=== PATIENT | female | born 1965 | race African-American/Black ===

== ENCOUNTER 2017-11-10 08:35 | Emergency (ER) | payer OTHER ==
[~2017-11-10] VITALS: Ht 162.6 cm; Wt 72.6 kg
[2017-11-10 08:35] VITALS: BP_SYST 146
--- NOTE | 2017-11-10 08:35 | NUR ---
BROUGHT BACK TO BED #5 AND TRIAGED. WILL ASSUME CARE.
--- NOTE | 2017-11-10 08:40 | NUR ---
PT STATES THAT SHE IS VISITING HERE FROM [facility] 3 DAYS WITH RIGHT LOWER ABD PAIN AND RIGHT BACK/FLANK PAIN, PT STATES +N/V. PT STATES THAT SHE IS UNABLE TO TAKE HER MEDICATION AT THIS TIME.
[2017-11-10] MEDS ORDERED: PIPERACILLIN/TAZO 3.38 GM in NS 50 ML IV ONE (09:15)
[2017-11-10] MEDS ORDERED: HYDROmorphone 2 MG/ML VIAL IVP ONE (09:15)
--- NOTE | 2017-11-10 09:31 | NUR ---
PT STATES SHE IS A "HARD STICK", ATTEMPTED BY 2 STAFF AND UNABLE TO GET IV STARTED. INFORMED DR SMITH AND WILL CHANGE IV TO IM. PT ASSISTED UP TO RESTROOM FOR UA COLLECTION
[2017-11-10 09:40] LABS: BASOPHILS % (AUTO) 0.7 % (0.0-2.0); EOSINOPHILS # (AUTO) 0.1 K/uL (0.0-0.4); EOSINOPHILS % (AUTO) 2.2 % (0.0-4.0); HEMATOCRIT 39.3 % (36-48); HEMOGLOBIN 12.6 g/dL (12.0-16.0); LYMPHOCYTES # (AUTO) 1.6 K/uL (1.0-5.5); LYMPHOCYTES % (AUTO) 31.6 % (20.5-51.5); MEAN CORPUSCULAR HEMOGLOBIN 26 pg (27-31); MEAN CORPUSCULAR HGB CONC 32 % (32-36); MEAN CORPUSCULAR VOLUME 82 fL (79.0-98.0); MONOCYTES # (AUTO) 0.3 K/uL (0.0-1.0); MONOCYTES % (AUTO) 6.9 % (1.7-9.3); NEUTROPHILS # (AUTO) 2.9 K/uL (1.8-7.7); NEUTROPHILS % (AUTO) 58.6 % (40.0-70.0); PLATELET COUNT (AUTO) 232 K/uL (130-430); RED BLOOD CELL COUNT(AUTO) 4.78 MIL/uL (4.2-6.2); RED CELL DISTRIBUTION WIDTH 13.9 % (9.0-15.0); WHITE BLOOD COUNT (AUTO) 4.9 K/uL (4.8-10.8)
--- NOTE | 2017-11-10 09:44 | NUR ---
ZOSYN WAS D/C VERBALLY BY DR SMITH AND ACCIDENTALLY SAVED IN EMR PRIOR TO ADMINISTERING.
[2017-11-10 09:50] LABS: BILIRUBIN,URINE NEGATIVE (NEGATIVE); BLOOD, URINE NEGATIVE (NEGATIVE); CLARITY/URINE SL HAZY (CLEAR); COLOR,URINE YELLOW (YELLOW); GLUCOSE,URINE NEGATIVE (NEGATIVE); KETONES,URINE NEGATIVE (NEGATIVE); LEUKOCYTE ESTERASE ,URINE NEGATIVE (NEGATIVE); NITRITE, URINE NEGATIVE (NEGATIVE); PROTEIN URINE NEGATIVE (NEGATIVE); UROBILINOGEN,URINE 0.2 (0.2-1.0)
[2017-11-10 09:55] LABS: CALCIUM 9.4 mg/dL (8.4-11.0); CREATININE 0.99 mg/dL (0.55-1.30); POTASSIUM 3.9 mmol/L (3.5-5.1)
[2017-11-10 10:13] LABS: ALBUMIN 3.7 g/dL (3.4-4.8); TOTAL BILIRUBIN 0.4 mg/dL (0.0-1.0)
--- NOTE | 2017-11-10 10:20 | NUR ---
NO CHANGES, RESTING IN ROOM
--- NOTE | 2017-11-10 11:00 | NUR ---
RESTING QUIETLY, ON PHONE AND TEXTING
[2017-11-10] MEDS ORDERED: MAGNESIUM CITRATE 300 ML ORAL SOLUTION PO ONE (11:15)
[2017-11-10] MEDS ORDERED: HYDROmorphone 2 MG/ML VIAL IM ONE (11:15)
--- NOTE | 2017-11-10 12:09 | NUR ---
PT STATES THAT SHE IS CALLING HER RIDE.
--- NOTE | 2017-11-10 12:38 | NUR ---
Patient given written and verbal discharge instructions and verbalizes understanding. ER MD discussed with patient the results and treatment provided. Patient in stable condition. ID arm band removed. Rx of NORCO, PHENERGAN given. Patient educated on pain management and to follow up with PMD. Pain Scale 0/10. Opportunity for questions provided and answered. Medication side effect fact sheet provided. PT REFUSED WHEELCHAIR, WALKED OUT TO [employer] CAR
[2017-11-10 12:39] VITALS: BP_SYST 137
== END 2017-11-10 12:39 | disposition home or self-care (01) ==
LOC: SED 08:35
DX: K59.00 Constipation, unspecified (principal); F11.20 Opioid dependence, uncomplicated; K21.9 Gastro-esophageal reflux disease without esophagitis; I10 Essential (primary) hypertension; Z90.49 Acquired absence of other specified parts of digestive tract; Z90.89 Acquired absence of other organs; Z90.710 Acquired absence of both cervix and uterus; Z79.899 Other long term (current) drug therapy
CPT/HCPCS: 36415; 71045; 74176; 80053; 81003; 83605; 83690; 85025; 85610; 87040; 93005; 96372; 99285; J1170

== ENCOUNTER 2017-11-18 06:17 | Inpatient (IN) | payer OTHER ==
[~2017-11-18] VITALS: Ht 167.6 cm; Wt 63.0 kg
[2017-11-18 06:28] VITALS: BP_SYST 143
--- NOTE | 2017-11-18 06:28 | NUR ---
Patient to ER bed 8 to gown for evaluation. Side rails up. Report given to KE YAO.
--- NOTE | 2017-11-18 06:30 | NUR ---
Patient AAO x 4 sitting in bed c/o mid abd pain radiating to back 10/10, + nausea/vomiting/diarrhea with c/o "blood in stool". Patient denies shortness of breath, able to speak in full sentences, vital signs stable. No acute distress noted. Patient currently afebrile. Will continue to monitor.
--- NOTE | 2017-11-18 06:35 | NUR ---
ER at bedside examining patient.
--- NOTE | 2017-11-18 07:00 | NUR ---
Report given to dayshift. All care endorsed.
--- NOTE | 2017-11-18 07:25 | NUR ---
Assumed care, unable to establish access. Dr. patel.
[2017-11-18] MEDS ORDERED: METOCLOPRAMIDE HCL 10 MG/2 ML VIAL IVP ONE (07:30)
[2017-11-18] MEDS ORDERED: DIPHENHYDRAMINE INJ 50 MG/ML VIAL IVP ONE (07:30)
[2017-11-18 07:45] LABS: BASOPHILS % (AUTO) 0.4 % (0.0-2.0); EOSINOPHILS # (AUTO) 0.1 K/uL (0.0-0.4); EOSINOPHILS % (AUTO) 1.9 % (0.0-4.0); HEMATOCRIT 40.6 % (36-48); HEMOGLOBIN 13.1 g/dL (12.0-16.0); LYMPHOCYTES # (AUTO) 1.8 K/uL (1.0-5.5); LYMPHOCYTES % (AUTO) 33.8 % (20.5-51.5); MEAN CORPUSCULAR HEMOGLOBIN 27 pg (27-31); MEAN CORPUSCULAR HGB CONC 32 % (32-36); MEAN CORPUSCULAR VOLUME 82 fL (79.0-98.0); MONOCYTES # (AUTO) 0.4 K/uL (0.0-1.0); MONOCYTES % (AUTO) 6.7 % (1.7-9.3); NEUTROPHILS # (AUTO) 2.9 K/uL (1.8-7.7); NEUTROPHILS % (AUTO) 57.2 % (40.0-70.0); PLATELET COUNT (AUTO) 247 K/uL (130-430); RED BLOOD CELL COUNT(AUTO) 4.94 MIL/uL (4.2-6.2); RED CELL DISTRIBUTION WIDTH 13.7 % (9.0-15.0); WHITE BLOOD COUNT (AUTO) 5.2 K/uL (4.8-10.8)
[2017-11-18 07:57] LABS: CALCIUM 9.1 mg/dL (8.4-11.0); CREATININE 1.05 mg/dL (0.55-1.30); POTASSIUM 3.5 mmol/L (3.5-5.1)
[2017-11-18 07:59] LABS: PROTHROMBIN TIME 10.3 SECS (9.5-12.5)
--- NOTE | 2017-11-18 08:00 | NUR ---
ER at bedside examining patient.
[2017-11-18 08:02] LABS: ALBUMIN 3.7 g/dL (3.4-4.8); TOTAL BILIRUBIN 0.2 mg/dL (0.0-1.0)
[2017-11-18] MEDS ORDERED: KETAMINE 30 MG/3 ML SYRINGE IVP ONE (08:30)
--- NOTE | 2017-11-18 08:30 | NUR ---
Access established by Dr. Osborn . RICK spangler
--- NOTE | 2017-11-18 09:10 | NUR ---
Pt tolerated medciation. Pt reports pain resolving
[2017-11-18] MEDS ORDERED: DIPHENHYDRAMINE INJ 50 MG/ML VIAL ONE (09:43)
[2017-11-18] MEDS ORDERED: METOCLOPRAMIDE HCL 10 MG/2 ML VIAL ONE (09:44)
[2017-11-18] MEDS ORDERED: PROMETHAZINE HCL 25 MG/ML AMP IVP ONE ×2 (09:45→12:15)
[2017-11-18] MEDS ORDERED: LISI40TA4 PO (10:30)
[2017-11-18] MEDS ORDERED: HYDROmorphone 1 MG INJ. 1 MG/ML AMPUL IVP ONE ×2 (10:45→12:15)
[2017-11-18] MEDS ORDERED: PHE25 PO (10:47)
[2017-11-18] MEDS ORDERED: HYDR2TAB4 PO (10:47)
[2017-11-18] MEDS ORDERED: NOR10 PO (10:47)
[2017-11-18] MEDS ORDERED: PRO40 PO (10:47)
[2017-11-18] MEDS ORDERED: SYN50 PO (10:47)
--- NOTE | 2017-11-18 10:48 | NUR ---
Medication reconciliation completed based upon list provided by patient.
--- NOTE | 2017-11-18 11:15 | NUR ---
Attempting to reestablish IV access, EJ not patent.
[2017-11-18] MEDS ORDERED: LORazepam 2 MG/ML VIAL IVP PRN (11:30)
[2017-11-18] MEDS ORDERED: HYDROmorphone 1 MG INJ. 1 MG/ML AMPUL IVP PRN (11:30)
--- NOTE | 2017-11-18 12:00 | NUR ---
IV established via US by Alton Skelton RN.
--- NOTE | 2017-11-18 12:20 | NUR ---
Pt medicated tolerated well.
--- NOTE | 2017-11-18 12:25 | NUR ---
Patient transported to radiology via gurney, accompanied by rad staff.
--- NOTE | 2017-11-18 12:40 | NUR ---
Returned from radiology, back to [facility].
--- NOTE | 2017-11-18 12:49 | NUR ---
Patient will be admitted to [facility] . Admitted to Medsurg unit. Belongings list completed. Summary report printed. Report will be given at bedside.
[2017-11-18 12:51] VITALS: BP_SYST 142
--- NOTE | 2017-11-18 12:51 | NUR ---
Admission: Received from ER on a gurney with the diagnosis of ILEUS. Alert and oriented x4. Oriented to room.
[2017-11-18] MEDS: HYDROmorphone 2 MG/ML VIAL IVP PRN ×3 (13:15→21:13)
[2017-11-18] MEDS: 0.45% NACL 1,000 ML IV SCH ×3 (13:16→22:55)
--- NOTE | 2017-11-18 13:30 | NUR ---
Opening Note received report from admitting nurse, pt resting in bed, A&Ox4, respirations even and unlabored on room air, pain controlled at this time, IV site clean, dry, intact, and infusing well, vital signs stable, pt educated on use of call light and asked to call for assistance, pt verbalized understanding, call light in reach, bed in low position, bed alarm on, room close to nurses station, fall and aspiration precautions in place.
--- NOTE | 2017-11-18 14:17 | NUR ---
CONSULT GI ILEUS DR MEDRANO [phone] DR LEON PEARL HAND S/W [place] OFFICE
--- NOTE | 2017-11-18 15:00 | NUR ---
RN Rounds pt resting in bed, pt requested cool pack for non-pharmacological pain relief, pt provided with cool pack, pt tolerating well, no additional needs at this time, fall and aspiration precautions in place.
[2017-11-18 16:00] VITALS: BP_SYST 117
[2017-11-18] MEDS: PROMETHAZINE HCL 25 MG/ML AMP IM PRN ×2 (17:22→21:07)
--- NOTE | 2017-11-18 17:33 | NUR ---
Pain Management/Nausea/Medication pt complaint of pain /10 to abdomen, pt complaint of nausea, pt educated on use and side effects of PRN pain and nausea medication, pt verbalized understanding, tolerated medication administration well, no additional needs at this time, fall and aspiration precautions in place.
--- NOTE | 2017-11-18 19:20 | NUR ---
OPENING NOTES Late entry due to patient care. Bedside report received from day shift nurse. Patient received lying in bed, AOx4, complaining of 4/10 abdominal pain. Breathing is even and unlabored. IVF infusing well, IV site shows no signs of infiltration or infection. Call light with patient, instructed to call for any assistance, patient verbalized understanding. Bed alarm is on. Bed is locked and at lowest position. Will continue to monitor.
--- NOTE | 2017-11-18 19:20 | NUR ---
Closing Note pt resting in bed, A&Ox4, respirations even and unlabored on room air, pain controlled at this time, pt states that she had small amount of blood in stool when wiping, endorsed to operations supervisor 2nd shift RN to follow up with MD, IV site clean, dry, intact, and infusing well, pt educated on use of call light and asked to call for assistance, pt verbalized understanding, call light in reach, bed in low position, bed alarm on, room close to nurses station, fall and aspiration precautions in place, care endorsed to operations supervisor 2nd shift RN.
[2017-11-18 20:00] VITALS: BP_SYST 110
--- NOTE | 2017-11-18 21:00 | NUR ---
ROUNDS/COMPLAIN OF PAIN AND NAUSEA Patient in bed, resting at this time. Patient complains of feeling nauseated and 8/10 abdominal pain. PRN medications will be administered. Chest rise and fall even bilaterally. IVF infusing well. IV site shows no signs of infection or infiltration. Call light with patient. Bed alarm is on. Will continue to monitor.
--- NOTE | 2017-11-18 23:00 | NUR ---
ROUNDS/BEDSIDE COMMODE Patient in bed resting at this time. Patient requested assistance to the bathroom, RN assisted, but patient was too weak to make it. Patient refused bed juares, RN brought a bedside commode instead. No s/s of acute distress. Breathing is even and unlabored. IVF infusing well. Call light with patient. All needs met at this time. Bed alarm on. Will continue to monitor.
[2017-11-19] VITALS: BP_SYST 110
--- NOTE | 2017-11-19 01:00 | NUR ---
ROUNDS/PAIN AND NAUSEA Patient sitting up in bed at this time. Patient complains of 7/10 abdominal pain and feeling nauseated. Dilaudid and Phenergan to be administered per PRN orders. Breathing is even and unlabored. IVF infusing well. Call light with patient. Bed alarm on. Will continue to monitor and reassess.
[2017-11-19] MEDS: PROMETHAZINE HCL 25 MG/ML AMP IM PRN ×3 (01:06→08:38)
[2017-11-19] MEDS: HYDROmorphone 2 MG/ML VIAL IVP PRN ×6 (01:06→20:52)
--- NOTE | 2017-11-19 03:00 | NUR ---
ROUNDS Patient in bed sleeping at this time. No s/s of acute distress noted. Chest rise and fall even bilaterally. IVF infusing well. Call light with patient. Bed alarm is on. Bed locked and at lowest position. Will continue to monitor.
--- NOTE | 2017-11-19 04:47 | NUR ---
[facility] Nguyen Justin dialed [phone], s/w Elizabeth.
--- NOTE | 2017-11-19 04:56 | NUR ---
DR. CARRERA CALLED BACK Dr. Carrera made aware that patient has yet to void throughout shift, bladder is distended and firm. MD ordered to insert vega and keep in place. Will carry out order. Addendum: 11/19/17 at 0603 by Herman Mireles RN ADDITIONAL MD was also made aware that bladder scan was performed and 764ml was detected.
--- NOTE | 2017-11-19 06:46 | NUR ---
CLOSING NOTES Patient in bed sleeping at this time. No s/s of acute distress noted. Breathing is even and unlabored. IVF infusing well, IV site shows no signs of infection or infiltration. Jules attached, secured and draining by gravity. Patient had 600 ml of clear, dark, orange urine output upon initial insertion of Jules. All of patient's needs met throughout shift. Fall and safety precautions maintained throughout shift.
[2017-11-19 07:05] LABS: BASOPHILS % (AUTO) 0.5 % (0.0-2.0); EOSINOPHILS # (AUTO) 0.1 K/uL (0.0-0.4); EOSINOPHILS % (AUTO) 1.1 % (0.0-4.0); HEMATOCRIT 36.5 % (36-48); LYMPHOCYTES # (AUTO) 1.4 K/uL (1.0-5.5); LYMPHOCYTES % (AUTO) 21.1 % (20.5-51.5); MEAN CORPUSCULAR HEMOGLOBIN 27 pg (27-31); MEAN CORPUSCULAR HGB CONC 33 % (32-36); MEAN CORPUSCULAR VOLUME 83 fL (79.0-98.0); MONOCYTES # (AUTO) 0.5 K/uL (0.0-1.0); MONOCYTES % (AUTO) 7.3 % (1.7-9.3); NEUTROPHILS # (AUTO) 4.6 K/uL (1.8-7.7); PLATELET COUNT (AUTO) 208 K/uL (130-430); RED CELL DISTRIBUTION WIDTH 13.8 % (9.0-15.0)
[2017-11-19 07:12] LABS: WHITE BLOOD COUNT (AUTO) 6.6 K/uL (4.8-10.8)
[2017-11-19 07:19] LABS: CALCIUM 8.7 mg/dL (8.4-11.0); CREATININE 0.98 mg/dL (0.55-1.30); POTASSIUM 3.8 mmol/L (3.5-5.1)
[2017-11-19 07:36] LABS: TOTAL BILIRUBIN 0.5 mg/dL (0.0-1.0)
[2017-11-19 07:37] LABS: ALBUMIN 3.3 g/dL (3.4-4.8)
[2017-11-19 08:00] VITALS: BP_SYST 132
--- NOTE | 2017-11-19 08:00 | NUR ---
Note Pt sitting up in bed with IVF's infusing through left AC IV site. Pt is NPO at this time for severe N/V. No SOB/resp distress noted at this time. Pt next to nurses' station for close observation. Pt has Jules catheter which is intact and draining well. No needs noted. Call light within reach.
[2017-11-19] MEDS ORDERED: PROMETHAZINE HCL 25 MG/ML AMP IVP PRN (10:00)
[2017-11-19] MEDS ORDERED: GASTROGRAFIN 120 ML ONE (11:04)
[2017-11-19] MEDS: 0.45% NACL 1,000 ML IV SCH ×2 (11:27→20:57)
--- NOTE | 2017-11-19 12:00 | NUR ---
Note Pt went to Radiology for small series at 0950am and returned at 1125am. Pt was not able to keep contrast down and had emesis. Pt back in room and resting in bed. Pt given her pain and nausea IVP medications q4' as requested and scheduled. Pt resting in bed. Pt still NPO. Call light within reach.
[2017-11-19 12:24] VITALS: BP_SYST 140
[2017-11-19] MEDS: PROMETHAZINE HCL 25 MG/ML AMP IVP PRN ×3 (12:49→20:52)
--- NOTE | 2017-11-19 15:53 | NUR ---
DC Planning: Updated pt's status to JAY Flores at [facility], case reference #[id number]. The pt c/o nausea/vomiting and pt. was unable to urinate since this am. DCP per GI consult: check sm. bowel series to evaluate for bowel obstruction, pain control and antiemetics for nausea and vomiting, and evaluation for possible EGD/Colonoscopy. JAY faxed FS,HP, consultation notes, labs and radiology notes to fax# [phone], tel# [phone], per her request. TVRN/JAY
--- NOTE | 2017-11-19 16:00 | NUR ---
Note Pt to be seen by Dr Nguyen who is on the floor at this time and orders were written. No needs noted. Call light within reach. Pt is doing her bible studies and on her cellphone. Call light within reach.
[2017-11-19 16:05] VITALS: BP_SYST 138
--- NOTE | 2017-11-19 17:40 | NUR ---
CONSULT PAIN MANAGEMENT ORDER BY Grupo WILKINS FOR Koki MARTINEZ REGARDING INTRACTIBLE PAIN S/W SYMONE
--- NOTE | 2017-11-19 18:00 | NUR ---
Note Pt resting in bed with IVF's infusing well through left forearm IV site all shift. Jules catheter intact and draining well all shift. Pt checked on q1' and PRN for needs and care all shift. Pt stable at this time. No SOB/resp distress noted. Call light within reach.
--- NOTE | 2017-11-19 19:25 | NUR ---
OPENING NOTE RECEIVED PT AND REPORT FROM DAY SHIFT NURSE. PT IS LAYING AWAKE IN BED. PT ABLE TO VERBALIZE NEEDS. IV IS INTACT AND PATENT. VIVEROS IN PLACE AND DRAINING URINE VIA GRAVITY. FALL AND SAFETY PRECAUTIONS IN PLACE. BED LOCKED IN LOWEST POSITION. CALL LIGHT WITH PT. WILL CONTINUE TO MONITOR.
[2017-11-19 20:00] VITALS: BP_SYST 142
--- NOTE | 2017-11-19 20:55 | NUR ---
MEDICATION ADMINISTRATION ADMINISTERED PRN PAIN AND NAUSEA MEDICATION PER ORDERS. ADMINISTERED IVF PER ORDERS. ENCOURAGED PT TO CALL BEFORE AMBULATING. PT AGREED. WILL CONTINUE TO MONITOR.
[2017-11-19] MEDS ORDERED: LEVOFLOXACIN 250 MG/D5W 50 ML IV SCH (22:00)
[2017-11-19] MEDS ORDERED: LEVOFLOXACIN 250 MG/D5W 50 ML IV ONE (22:18)
[2017-11-19] MEDS ORDERED: metroNIDAZOLE 500 mg/NS 200 ML IV ONE (22:19)
--- NOTE | 2017-11-19 22:30 | NUR ---
IV ABX ADMINISTERED IV ABX PER ORDERS. PT RESTING IN BED. CALL LIGHT WITH PT. WILL CONTINUE TO MONITOR.
--- NOTE | 2017-11-19 23:50 | NUR ---
IV ABX ADMINISTERED IV ABX PER ORDERS. WILL CONTINUE TO MONITOR.
[2017-11-19] MEDS: metroNIDAZOLE 250 mg/NS 50 ML IV SCH (23:52)
[2017-11-20 00:28] VITALS: BP_SYST 117
[2017-11-20] MEDS: HYDROmorphone 2 MG/ML VIAL IVP PRN ×5 (01:00→19:18)
[2017-11-20] MEDS: PROMETHAZINE HCL 25 MG/ML AMP IVP PRN ×5 (01:00→19:17)
--- NOTE | 2017-11-20 01:00 | NUR ---
PRN PAIN AND NAUSEA MEDICATION ADMINISTERED PRN PAIN AND NAUSEA MEDICATION PER ORDERS. PT RESTING IN BED. BED ALARM ON. CALL LIGHT WITH PT. WILL CONTINUE TO MONITOR.
--- NOTE | 2017-11-20 02:40 | NUR ---
ROUNDING NOTE PT IS SLEEPING IN BED. NO S/S OF DISTRESS OR DISCOMFORT. CALL LIGHT WITH PT. WILL CONTINUE TO MONITOR.
--- NOTE | 2017-11-20 05:05 | NUR ---
PRN PAIN AND NAUSEA MEDICATION ADMINISTERED PRN PAIN AND NAUSEA MEDICATION PER ORDER. BED ALARM ON. PT RESTING. WILL CONTINUE TO MONITOR.
[2017-11-20] MEDS: metroNIDAZOLE 250 mg/NS 50 ML IV SCH ×2 (06:04→15:14)
--- NOTE | 2017-11-20 06:08 | NUR ---
IV ABX ADMINISTERED IV ABX. STOREPERSON AT BEDSIDE. PT TOLERATING WELL. WILL CONTINUE TO MONITOR.
--- NOTE | 2017-11-20 06:24 | NUR ---
CLOSING NOTE WILL ENDORSE CARE AND REPORT TO DAY SHIFT NURSE. PT IS SITTING UP AWAKE IN BED. ALL NEEDS MET THROUGHOUT SHIFT. NO SIGNIFICANT CHANGES TO NOTE DURING SHIFT. PT IS IN STABLE CONDITION. CALL LIGHT WITH PT. WILL CONTINUE TO MONITOR.
[2017-11-20] MEDS ORDERED: SIMETHICONE 40 MG/0.6 ML ML ONE (07:20)
[2017-11-20] MEDS ORDERED: MEPERIDINE HCL/PF 100 MG/ML AMP ONE (07:20)
--- NOTE | 2017-11-20 07:20 | NUR ---
AM rounds: Received patient sleeping. IV fluids 1/2 NS 100cc/hr infusing on the left arm gauge 20.
[2017-11-20] MEDS ORDERED: MIDAZOLAM HCL 5 MG/5 ML VIAL ONE (07:21)
--- NOTE | 2017-11-20 07:45 | NUR ---
AM rounds: Awake, oriented x4. Kept NPO for EGD today. Patient states pain is ON & OFF accompanied by nausea and vomiting. Abdomen is slightly tender. Last Bowel movement was . Today's plan of care is discussed with patient. Call light within reach.
[2017-11-20 07:52] VITALS: BP_SYST 135
--- NOTE | 2017-11-20 07:52 | NUR ---
(GI) rounds: Seen by Dr. Gonzales, EGD will be done tomorrow instead of today. Wants to request a surgical consult per Dr. Grupo Nguyen.
[2017-11-20 08:02] LABS: BASOPHILS # (AUTO) 0.1 K/uL (0.0-0.2); BASOPHILS % (AUTO) 0.9 % (0.0-2.0); EOSINOPHILS # (AUTO) 0.1 K/uL (0.0-0.4); HEMATOCRIT 38.9 % (36-48); HEMOGLOBIN 12.8 g/dL (12.0-16.0); LYMPHOCYTES # (AUTO) 1.4 K/uL (1.0-5.5); MEAN CORPUSCULAR HEMOGLOBIN 27 pg (27-31); MEAN CORPUSCULAR HGB CONC 33 % (32-36); MEAN CORPUSCULAR VOLUME 82 fL (79.0-98.0); MONOCYTES # (AUTO) 0.5 K/uL (0.0-1.0); MONOCYTES % (AUTO) 7.1 % (1.7-9.3); NEUTROPHILS # (AUTO) 4.7 K/uL (1.8-7.7); PLATELET COUNT (AUTO) 188 K/uL (130-430); RED BLOOD CELL COUNT(AUTO) 4.74 MIL/uL (4.2-6.2); RED CELL DISTRIBUTION WIDTH 13.5 % (9.0-15.0); WHITE BLOOD COUNT (AUTO) 6.8 K/uL (4.8-10.8)
[2017-11-20 08:07] LABS: HEPATITIS A AB, IgM Negative (Negative); HEPATITIS B CORE AB, IgM Negative (Negative); HEPATITIS B SURFACE AG Negative (Negative)
[2017-11-20 08:10] LABS: ALBUMIN 3.4 g/dL (3.4-4.8); CALCIUM 9.1 mg/dL (8.4-11.0); CREATININE 0.76 mg/dL (0.55-1.30); POTASSIUM 3.8 mmol/L (3.5-5.1); TOTAL BILIRUBIN 0.8 mg/dL (0.0-1.0)
--- NOTE | 2017-11-20 08:16 | NUR ---
CONSULTATION PAGED REASON FOR CONSULTATION:POSSIBLE BOWEL OBSTRUCTION WAS CONSULT CALLED?Y PERSON WHO WAS NOTIFIED:REILLY CONSULTING PHYSICIAN:MANAN BRANDT [employer] SPECIALTY:SURGEON [employer] PHONE NUMBER:[phone] ORDERING PHYSICIAN:TREV SANTOS
--- NOTE | 2017-11-20 08:31 | NUR ---
EGD: Transported to GI lab for EGD.
--- NOTE | 2017-11-20 09:24 | NUR ---
S/P EGD. Back from GI lab s/p EGD.
--- NOTE | 2017-11-20 10:02 | NUR ---
Nutrition Update Tristan Scale 18 noted. Pt admitted for ileus. Diet: clear liquid BMI: 22.4 kg/m2 RD to follow per nutrition care standards.
[2017-11-20 10:06] VITALS: BP_SYST 136
[2017-11-20] MEDS ORDERED: DIATR MEGLU/DIATRIZ SOD 30 ML SOLUTION PO ONE (10:09)
--- NOTE | 2017-11-20 10:52 | NUR ---
Diet: Patient inquired if she is still NPO. Instructed patient that there is a CT Abdomen/Pelvis ordered and Surgical consult. Verbalized understanding.
--- NOTE | 2017-11-20 11:31 | NUR ---
DISCHARGE PLANNING - INSURANCE REQUESTING INFO Received call from JAY Restrepo at [facility]), requesting to fax updated clinical info for this date. Faxed to FAX #: [phone] the ff: Progress Notes, Surgery Operative Notes, current Medication lists/lab results. Addendum: 11/20/17 at 1414 by Eli Samano RN Received vm from Halley from [facility]). Requesting return call. C/S with Halley ph: [phone]. She was requesting update of EGD. Provided her info that EGD completed today, 11/20. Post-op dx: Gastritis, Gastric Polyp, Gastroparesis. Bx is taken and sent for pathology and ARABELLA test. No discharge order. Clarified FAX # as fax has been returning as "BUSY". She confirmed Fax # as [phone] . She stated they have been receiving multiple ques of fax coming. She stated, as for now, clinical status provided to her is sufficient as update. This CM will continue to attempt to fax clinical info.
[2017-11-20 12:00] VITALS: BP_SYST 139
[2017-11-20] MEDS: 0.45% NACL 1,000 ML IV SCH ×2 (12:06→22:31)
[2017-11-20] MEDS ORDERED: IOHEXOL 100 ML IV ONE (13:47)
--- NOTE | 2017-11-20 14:20 | NUR ---
CT scan. To CT scan on a wheelchair for CT Abd/Pelvis
--- NOTE | 2017-11-20 15:00 | NUR ---
IV start: IV infiltrated while having CT scan. Started gauge 22 on the left hand. Secured with tegaderm and tape.
[2017-11-20 16:17] VITALS: BP_SYST 122
--- NOTE | 2017-11-20 18:20 | NUR ---
End of shift: Needs attended. Result of CT scan reported to Dr. Gonzales with new diet order received.
--- NOTE | 2017-11-20 19:30 | NUR ---
OPENING NOTE RECEIVED PT AND REPORT FROM DAY SHIFT NURSE. PT IS SITTING UP AWAKE IN BED. PT ABLE TO VERBALIZE NEEDS. PT DENIES ANY PAIN AT THIS TIME. IV IS INTACT AND RUNNING IVF PER ORDERS. VIVEROS CATHETER IN PLACE DRAINING YELLOW URINE. FALL AND SAFETY PRECAUTIONS IN PLACE. BED LOCKED IN LOWEST POSITION. BED ALARM ON. CALL LIGHT WITH PT. WILL CONTINUE TO MONITOR.
[2017-11-20 20:00] VITALS: BP_SYST 150
[2017-11-20 20:10] LABS: ANTI NUCLEAR AB WITH REFLEX Negative (Negative)
--- NOTE | 2017-11-20 20:10 | NUR ---
IV INFILTRATED IV REMOVED DUE TO INFILTRATION. KE VALENTIN ATTEMPTED INSERTION BUT WAS UNSUCCESSFUL. CHARGE NURSE WILL ATTEMPT.
--- NOTE | 2017-11-20 21:30 | NUR ---
IV ATTEMPT DIDA, CHARGE NURSE AND ORESTES, VEGETABLE COOK ATTEMPTED TO INSERT IV WITHOUT SUCCESS. PT TOLERATED WELL.
--- NOTE | 2017-11-20 22:30 | NUR ---
IV KE GROVER FROM ICU ATTEMPTING TO INSERT IV. PT TOLERATING WELL.
--- NOTE | 2017-11-20 23:30 | NUR ---
IV ATTEMPT KE CHAN FROM ER AT BEDSIDE ATTEMPTING IV. PT TOLERATING WELL.
--- NOTE | 2017-11-21 00:22 | NUR ---
pageJustin Ramos Dr. for orders spoke with
[2017-11-21 00:32] VITALS: BP_SYST 125
--- NOTE | 2017-11-21 00:40 | NUR ---
DEBI INFORMED DR CARRERA THAT WE ARE UNABLE TO OBTAIN IV ACCESS ON PT. DR. CARRERA ORDERS TO CHANGE ALL MEDICATIONS TO PO FORM. INFORMED THAT PT IS ON CLEAR LIQUID DIET AND HAS NOT VOMITED ON SHIFT OF YET. RECEIVED ORDER FOR PICC LINE TOMORROW. WILL FOLLOW THROUGH WITH ORDERS. Addendum: 11/21/17 at 0237 by Christiane Levy RN ALSO INFORMED DR OF SIGNIFICANT SWELLING TO LEFT HAND WHERE PREVIOUS IV WAS PLACED, DR. CARRERA STATES TO APPLY ICEPACKS.
[2017-11-21] MEDS ORDERED: HYDROmorphone 2 MG TAB PO PRN (00:45)
[2017-11-21] MEDS ORDERED: LORazepam 1 MG TABLET PO PRN (00:45)
[2017-11-21] MEDS ORDERED: PROMETHAZINE HCL 25 MG TABLET PO PRN (00:45)
--- NOTE | 2017-11-21 01:50 | NUR ---
paged Dr. Nguyen for orders spoke with Irasema
--- NOTE | 2017-11-21 02:08 | NUR ---
DEBI ORDERS INFORMED DR. CARRERA OF PT REFUSAL TO TAKE PO MEDICATIONS. DEBI AGREED TO IM FORM OF PAIN AND NAUSEA MEDICATION. STATES TO HOLD ANTIBIOTICS UNTIL PICC IS PLACED.
[2017-11-21] MEDS: HYDROmorphone 2 MG/ML VIAL IM PRN ×3 (02:27→11:26)
[2017-11-21] MEDS: PROMETHAZINE HCL 25 MG/ML AMP IM PRN ×3 (02:28→11:25)
--- NOTE | 2017-11-21 02:35 | NUR ---
PRN PAIN AND NAUSEA MEDICATION/ SWOLLEN HAND ADMINISTERED PRN PAIN AND NAUSEA MEDICATION PER ORDERS. PROVIDED PT WITH ICEPACK FOR SWOLLEN HAND AND INSTRUCTED PT TO KEEP HAND ELEVATED. WILL CONTINUE TO MONITOR.
--- NOTE | 2017-11-21 04:10 | NUR ---
ROUNDING NOTE BROUGHT PATIENT WET WASH CLOTHES PER REQUEST. WILL CONTINUE TO MONITOR.
[2017-11-21] MEDS ORDERED: COMMUNICATION ORDER XX ONE (04:15)
--- NOTE | 2017-11-21 05:09 | NUR ---
IV ABX ADMINISTERED IV ABX PER ORDER. PT SLEEPING. WILL CONTINUE TO MONITOR. Addendum: 11/21/17 at 0529 by Christiane Levy RN INCORRECT PT.
[2017-11-21] MEDS ORDERED: metroNIDAZOLE 250 MG TABLET PO SCH (06:00)
--- NOTE | 2017-11-21 06:06 | NUR ---
paged Justin Cole for orders spoke with Elizabeth.
--- NOTE | 2017-11-21 06:30 | NUR ---
DEBI/HAND SWELLING INFORMED THAT HAND REMAINS SIGNIFICANTLY SWOLLEN, AND PT REPORTS PAIN WELL NUMBNESS TO CERTAIN AREAS. RECEIVED ORDERS. WILL FOLLOW THROUGH WITH ORDERS.
--- NOTE | 2017-11-21 06:53 | NUR ---
PRN PAIN AND NAUSEA MEDICATION ADMINISTERED PRN PAIN AND NAUSEA MEDICATION PER ORDERS. CALL LIGHT WITH PT. WILL CONTINUE TO MONITOR.
--- NOTE | 2017-11-21 07:20 | NUR ---
Opening Note patient sitting up in bed, awake and alert, breathing unlabored on room air, no IV site at this time, pending PICC line placement, educated patient on use of call light for assistance, verbalized understanding, safety precautions in place, call light and bedside table left within reach, will be back to check on patient
--- NOTE | 2017-11-21 07:33 | NUR ---
CLOSING NOTE WILL ENDORSE CARE AND REPORT TO DAY SHIFT NURSE. PT IS SITTING UP AWAKE IN BED. PT IS STABLE AT THIS TIME. ALL NEEDS MET THROUGHOUT SHIFT. SWELLING TO THE LEFT HAND ENDORSED TO DAY SHIFT. CALL LIGHT IS WITH PATIENT. WILL CONTINUE TO MONITOR.
[2017-11-21 08:00] VITALS: BP_SYST 121
--- NOTE | 2017-11-21 08:28 | NUR ---
Dr. Oconnor Rounds at this time, stated there is no indication for surgery, patient verbalized understanding, will continue to monitor patient
[2017-11-21 08:30] LABS: BASOPHILS % (AUTO) 0.5 % (0.0-2.0); EOSINOPHILS # (AUTO) 0.1 K/uL (0.0-0.4); EOSINOPHILS % (AUTO) 2.1 % (0.0-4.0); HEMATOCRIT 36.9 % (36-48); HEMOGLOBIN 11.8 g/dL (12.0-16.0); LYMPHOCYTES # (AUTO) 1.6 K/uL (1.0-5.5); LYMPHOCYTES % (AUTO) 26.8 % (20.5-51.5); MEAN CORPUSCULAR HEMOGLOBIN 26 pg (27-31); MEAN CORPUSCULAR HGB CONC 32 % (32-36); MEAN CORPUSCULAR VOLUME 82 fL (79.0-98.0); MONOCYTES # (AUTO) 0.5 K/uL (0.0-1.0); MONOCYTES % (AUTO) 9.2 % (1.7-9.3); NEUTROPHILS # (AUTO) 3.7 K/uL (1.8-7.7); NEUTROPHILS % (AUTO) 61.4 % (40.0-70.0); PLATELET COUNT (AUTO) 199 K/uL (130-430); RED CELL DISTRIBUTION WIDTH 13.3 % (9.0-15.0); WHITE BLOOD COUNT (AUTO) 5.9 K/uL (4.8-10.8)
[2017-11-21 08:39] LABS: PROTHROMBIN TIME 10.6 SECS (9.5-12.5)
--- NOTE | 2017-11-21 08:50 | NUR ---
Patient Stated She Wants to be Discharged by today because [place] from [place] and she [place] a flight, educated her on PICC line placement order, verbalized understanding, stated she wants to cancel placement, will inform house sup and inform MD
[2017-11-21 08:55] LABS: ALBUMIN 3.3 g/dL (3.4-4.8); C-REACTIVE PROTEIN QUANT 1.6 mg/dL (0-0.5); CALCIUM 9.2 mg/dL (8.4-11.0); CREATININE 0.85 mg/dL (0.55-1.30); POTASSIUM 3.1 mmol/L (3.5-5.1); TOTAL BILIRUBIN 0.7 mg/dL (0.0-1.0)
--- NOTE | 2017-11-21 09:40 | NUR ---
Hand measurements left hand (pinky base to thumb base)- 28 cm left wrist- 18 cm right hand (pinky base to thumb base)- 25 cm right hand- 15 cm Patient is able to move left hand, non-pitting edema, skin feels warm, states feels tender, slight pain
[2017-11-21 09:43] LABS: ERYTHROCYTE SEDIMENTATION RATE 18 MM/HR (0-20)
[2017-11-21] MEDS ORDERED: LEVOFLOXACIN 250 MG TABLET PO SCH (10:00)
--- NOTE | 2017-11-21 10:17 | NUR ---
Dr. Christian Cruz at this time, aware patients wants to leave today, will follow through with MD orders
--- NOTE | 2017-11-21 11:21 | NUR ---
ATTENDING MD DR Maci CARRERA WAS PAGED, RE: DESIRE OF THE PT TO GO HOME, REFUSING PIC LINE INSERTION.
--- NOTE | 2017-11-21 11:25 | NUR ---
Pain/Nausea Meds administered per protocol, educated her regarding meds, verbalized understanding, administered IM, patient tolerated well, safety precautions remain in place, bedside table and call light left within reach, will continue to monitor and reassess patient
[2017-11-21 12:16] VITALS: BP_SYST 113
--- NOTE | 2017-11-21 13:21 | NUR ---
Paged Dr. Nguyen at this time to inform him about patient's potassium level and to ask about patient's hand swelling, will follow through with MD orders
--- NOTE | 2017-11-21 13:29 | NUR ---
Spoke with Dr. Nguyen informed him about patient's potassium, ordered 1 time order for potassium by mouth, also asked if he wants to evaluate patient's hand from swelling, stated she can follow up with primary care provider regarding hand, also gave order to discontinue vega catheter, will implement MD orders
[2017-11-21] MEDS ORDERED: POTASSIUM CHLORIDE 20 MEQ TAB.PRT.SR PO ONE (13:30)
--- NOTE | 2017-11-21 13:45 | NUR ---
Jules Catheter Removed patient was able to ambulate to restroom and void, no complaints of discomfort, will continue with discharge teaching for patient
[2017-11-21 13:56] VITALS: BP_SYST 113
[2017-11-24 14:28] LABS: ANTI-SMOOTH MUSCLE AB 21 Units (0-19)
== END 2017-11-21 14:25 | disposition home or self-care (01) | DRG 389 ==
LOC: SED 06:17 → SMU 10:31
PROVIDERS: ADMIT Preventive Medicine Preventive Medicine/Occupational Environmental Medicine; ATTEND Preventive Medicine Preventive Medicine/Occupational Environmental Medicine
PROC: 0DB68ZX Excision of Stomach, Via Natural or Artificial Opening Endoscopic, Diagnostic (ICD-10-PCS; 2017-11-20)
PROC: 0DB98ZX Excision of Duodenum, Via Natural or Artificial Opening Endoscopic, Diagnostic (ICD-10-PCS; principal; 2017-11-20 08:00)
DX: K56.609 Unspecified intestinal obstruction, unspecified as to partial versus complete obstruction (principal); E87.1 Hypo-osmolality and hyponatremia; K29.70 Gastritis, unspecified, without bleeding; K56.7 Ileus, unspecified; K21.9 Gastro-esophageal reflux disease without esophagitis; E03.9 Hypothyroidism, unspecified; G89.4 Chronic pain syndrome; E11.22 Type 2 diabetes mellitus with diabetic chronic kidney disease; E88.09 Other disorders of plasma-protein metabolism, not elsewhere classified; M79.673 Pain in unspecified foot; K31.7 Polyp of stomach and duodenum; M25.559 Pain in unspecified hip; I12.9 Hypertensive chronic kidney disease with stage 1 through stage 4 chronic kidney disease, or unspecified chronic kidney disease; R74.0 Nonspecific elevation of levels of transaminase and lactic acid dehydrogenase [LDH]; N18.9 Chronic kidney disease, unspecified; Z90.710 Acquired absence of both cervix and uterus; Z90.49 Acquired absence of other specified parts of digestive tract; Z88.5 Allergy status to narcotic agent; Z88.8 Allergy status to other drugs, medicaments and biological substances; Z79.899 Other long term (current) drug therapy; Z90.79 Acquired absence of other genital organ(s); Z90.722 Acquired absence of ovaries, bilateral
CPT/HCPCS: 36415; 43239; 74021; 74181; 74250-TC; 80053; 80074; 83516; 83690-TC; 85025; 85610-TC; 85651-TC; 85730-TC; 86038; 86140; 87081; 88305; 88312; 88313; 93971; 96374; 96375; 96376; 99285; J1170; J1200; J1956; J2175; J2250; J2550; J2765; J3490; Q9963; Q9964; Q9967